=== PATIENT | female | born 1965 | race African-American/Black ===

== ENCOUNTER 2016-09-22 18:19 | Inpatient (IN) | payer OTHER ==
--- NOTE | ~2016-09-22 | HP ---
Unit #: [id number] #: [id number] Patient: DIYA OROPEZA [id number] [facility] [address] [place] [address] [id number] MR#: [id number] NAME: DIYA OROPEZA ROOM: P252 Age: 51 Sex: F Admission Date: 09/23/2016 : 1965 Attending Physician: Pedrito Hernandez M.D. Admitting Physician: Pedrito Hernandez M.D. Primary Care Physician: Primary Care Physician No HISTORY AND PHYSICAL HISTORY OF PRESENT ILLNESS Diya is a 51 year old admitted to [address] [place] [address] because of her polysubstance abuse which includes alcohol and opioids. She reports an alleged suicide attempt with an overdose of pain pills and alcohol. PAST MEDICAL HISTORY 1. High blood pressure. 2. Hyperlipidemia. PAST SURGICAL HISTORY 1. Hysterectomy. 2. Cholecystectomy. 3. T and A. 4. Knee. ALLERGIES No known drug allergies. SOCIAL HISTORY Smokes less than 1 pack per day. Drinks alcohol frequently and denies illicit drug use. FAMILY HISTORY Medically noncontributory. REVIEW OF SYSTEMS CONSTITUTIONAL: No fever or chills. HEENT: Denies any sore throat, ear pain or runny nose. CARDIOVASCULAR: Denies chest pain, irregular heart rhythm or palpitations. CHEST: Denies shortness of breath or cough. No hemoptysis. GASTROINTESTINAL: Denies nausea, vomiting, diarrhea or chronic constipation. ENDOCRINE: Denies history of increased thirst or urination. No recent significant weight loss or gain. GENITOURINARY: Denies dysuria, frequency, or hematuria. SKIN: Denies any rashes. HEMATOLOGIC: Denies history of increased bleeding or bruising. MUSCULOSKELETAL: Denies any hot, swollen joints. No generalized muscle pain. NEUROLOGIC: Denies problems with vision or speech. No frequent, severe headaches. No numbness, tingling or weakness in any extremities. Denies loss of bladder or bowel control. Unit #: [id number] #: [id number] Patient: DIYA OROPEZA CURRENT MEDICATIONS 1. Detox protocol. 2. Norvasc 10 mg daily. 3. Lotensin 20 mg daily. 4. HCTZ 12.5 mg daily. 5. Nicotine patch 14 mg daily. PHYSICAL EXAMINATION GENERAL: Alert, well-nourished, in no apparent distress. VITAL SIGNS: Blood pressure 120/86, heart rate 80, respirations 16, temperature 98.6. SKIN: Warm and dry without rash or lesion. HEENT: Normocephalic. TMs not viewed. Oral and nasal passages clear. Conjunctivae clear. PERRLA. EOMs intact. NECK: Supple without lymphadenopathy or thyromegaly. HEART: Regular rate and rhythm without murmur. LUNGS: Clear. ABDOMEN: Soft, nontender. : Not done. EXTREMITIES: No evidence of cyanosis, clubbing or edema. Moves all without focal deficit. NEUROLOGICAL: Grossly within normal limits. Cranial Nerves: II: Visual rich are intact. III, IV AND : Extraocular movements are intact. Pupils are equal, round and reactive to light. V: Facial sensation is grossly normal. VII: Facial movements and expression are normal. VIII: Auditory acuity grossly intact. IX, X: Uvula is midline. Phonation is normal. XI: Patient shrugs shoulders and turns head normally. XII: Tongue protrudes in the midline. Sensory and Motor Function: Sensory and motor sensation is grossly normal. Motor: moves all extremities well. Coordination: Gait is normal. Deep Tendon Reflexes: Intact. IMPRESSION Psychiatric admission. RECOMMENDATIONS PSYCHIATRIC: Per psychiatrist. MEDICAL: See no contraindications to participate in facility's activities. MEDICAL PROGNOSIS Good. MEDICAL CONDITION Stable. Dictated by... Zhane Pineda P.A.-C. for Shivani Salmon/rukhsana TD: 09/23/2016 20:01 JOB #: [id number] Unit #: [id number] #: [id number] Patient: DIYA OROPEZA HISTORY AND PHYSICAL Page 1 of 1 X Zhane Pineda HISTORY AND PHYSICAL
--- NOTE | ~2016-09-22 | PN ---
Unit #: [id number] #: [id number] Patient: DIYA OROPEZA [id number] [facility] [address] [place] [address] [id number] I MR#: [id number] NAME: DIYA OROPEZA ROOM: P252 Age: 51 Sex: F Admission Date: 09/23/2016 : 1965 Attending Physician: Pedrito Hernandez M.D. Admitting Physician: Pedrito Hernandez M.D. Primary Care Physician: Primary Care Physician Dione REYES PROGRESS NOTES DATE OF SERVICE 09/25/2016 DISCUSSION Ms. Rivera is a 51-year-old female seen on 09/25/2016. The patient interviewed, chart reviewed. Obtained information from nursing staff. The patient continues to report feeling sad, depressed, withdrawn, but denied any thoughts of harming self or others, making progress. The patient dressed casually. Hygiene and grooming fair. Pleasant, cooperative. Complete Review of Systems: Unremarkable. MENTAL STATUS EXAMINATION General Appearance: The patient dressed casually in hospital attire. Attention span, concentration: Fair. Oriented in time, place, and person. Mood and affect: Sad, dysphoric. Speech: Monotone. Thought process: [place]. The patient denied any thoughts of harming self or others. Reported her mood is getting better but still isolative. Recent and remote memory: Poor. Insight and judgment: Poor. DIAGNOSES 1. Major depressive, disorder, recurrent. 2. Alcohol use disorder, moderate. ASSESSMENT/PLAN Advised to continue with current medication and therapeutic protocol. If needed, consider further adjustment of medication. Dictated by... Shivani Guerrero/vilma TD: 09/26/2016 14:49 JOB #: [id number] Unit #: [id number] #: [id number] Patient: DIYA OROPEZA [facility] PROGRESS NOTES Page 1 of 1 X Pedrito Hernandez MD PROGRESS NOTE
--- NOTE | ~2016-09-22 | DS ---
Unit #: [id number] #: [id number] Patient: DIYA OROPEZA [id number] [facility] [address] [place] [address] [id number] MR#: [id number] NAME: DIYA OROPEZA ROOM: [facility] Age: 51 Sex: F Admission Date: 09/23/2016 : 1965 Discharge Date: 09/27/2016 Attending Physician: Pedrito Hernandez M.D. Primary Care Physician: Primary Care Physician No DISCHARGE SUMMARY REASON FOR ADMISSION Depression and alcohol abuse. DIAGNOSTIC STUDIES LABORATORY RESULTS: Unremarkable. HOSPITAL COURSE The patient was admitted to inpatient unit on 09/23/2016 and discharged on 09/27/2016. The patient was treated with group therapy, individual therapy, and medication management. The patient responded well with the above modalities of treatment. Subsequently, the patient was discharged with a plan to follow up in outpatient program. DISCHARGE MEDICATIONS Zoloft 50 mg daily for depression, Vistaril 25 mg t.i.d. for anxiety, and Desyrel 50 mg at bedtime for sleep. DISCHARGE DIAGNOSES Psychiatric: Major depressive disorder, recurrent, severe, F33.2 and alcohol use disorder, severe, F10.20. Secondary diagnosis: Deferred. Medical diagnosis: Hypertension. Stressors: Psychosocial stressors. DISCHARGE INSTRUCTIONS The patient to follow up in outpatient clinic as per electrical line worker. CONDITION ON DISCHARGE The patient was pleasant and cooperative. Denied any psychotic symptom or any suicidal ideation. PROGNOSIS Guarded. DIET AND ACTIVITY As tolerated. Dictated by... Pedrito Hernandez M.D. Unit #: [id number] #: [id number] Patient: DIYA OROPEZA SZC/modl TD: 09/27/2016 17:45 JOB #: [id number] DISCHARGE SUMMARY Page 1 of 1 X Pedrito Hernandez MD X DISCHARGE SUMMARY
--- NOTE | ~2016-09-22 | PA ---
Unit #: [id number] #: [id number] Patient: DIYA OROPEZA [id number] [facility] [address] [place] [address] [id number] MR#: [id number] NAME: DIYA OROPEZA ROOM: P252 Age: 51 Sex: F Admission Date: 09/23/2016 : 1965 Date of Assessment: 09/23/2016 Attending Physician: Pedrito Hernandez M.D. Admitting Physician: Pedrito Hernandez M.D. Primary Care Physician: Primary Care Physician No PSYCHIATRIC ASSESSMENT INFORMANTS The patient's reliability, fair; chart reliability, good. CHIEF COMPLAINT Depression, suicidal ideation, suicide attempt. HISTORY OF PRESENT ILLNESS Ms. Rivera is a 51-year-old female, admitted after she overdosed on pain medication and after drinking alcohol, the patient reported I drank wine and gin and got back to house and took a handful of pain pills. The patient's daughter concerned that the patient has a history of depression. The patient was sad, depressed, feeling of hopelessness. The patient has a history of previous suicide attempt. The patient has also received services in the past, but since she moved to new place, not receiving any services. The patient overdosed with a suicide attempt, brought through the emergency room by EMS on 09/22/2016. The patient has a good support system. Denied any hallucination. Denied any psychotic symptom or any homicidal ideation. The patient reports that she lives at home with son and son's girlfriend. The patient reported lot of recent stressors. The patient binge drink last night. The patient needed inpatient admission at this time for psychiatric stabilization. PAST PSYCHIATRIC HISTORY Remarkable for history of previous treatment. Suicidal ideation inpatient 2006 and 2009 at [facility]. Outpatient services through [facility]. FAMILY HISTORY AND SOCIAL HISTORY The patient has a good support system from family. No history of any abuse. MEDICAL HISTORY Remarkable for hypertension. Musculoskeletal; muscle strength and tone, no atrophy or abnormal movement. Gait normal. MEDICATION HISTORY None. ALLERGIES No known drug allergies. SUBSTANCE ABUSE HISTORY The patient admitted using tobacco, age of onset 40; alcohol, age of onset Unit #: [id number] #: [id number] Patient: DIYA OROPEZA 25, occasional use twice a month. No history of any blackout. No history of any HIV, hepatitis, or withdrawal symptom. REVIEW OF SYSTEMS HEENT: Eyes, clear. Ears, nose, mouth, and throat; clear. CARDIOVASCULAR: Unremarkable. RESPIRATORY: Unremarkable. GI: Unremarkable. : Unremarkable. SKIN: Unremarkable. LYMPH NODE: Unremarkable. NEUROLOGIC: Unremarkable. ENDOCRINE: Unremarkable. HEMATOLOGIC: Unremarkable. ALLERGIC/IMMUNOLOGIC: Unremarkable. MUSCULOSKELETAL: Muscle strength and tone, no atrophy or abnormal movement. Gait normal. MENTAL STATUS EXAMINATION CONSTITUTIONAL: Measurement of vital signs; temperature 98.1, pulse 91, respirations 18, oxygen saturation 100%, and blood pressure 120/87. GENERAL APPEARANCE: The patient dressed casually. The patient did not show any facial deformity. MUSCULOSKELETAL: Please see above. PSYCHIATRIC EXAMINATION Description of speech; regular rate, normal volume, normal articulation, coherent. Description of thought process, goal directed. Description of association, intact. Description of abnormal psychotic thinking; the patient denied any hallucination or delusions, but sad, depressed, suicidal ideation. No psychotic symptom. Description of the patient's judgment; concerning everyday activity, poor. Social situation, poor. Concerning psychiatric condition, poor. Complete mental examination; oriented in time, place, and person. Recent and remote memory, fair. Attention span and concentration, fair. Language, able to name object and repeat phrases. Fund of knowledge, aware of current event and passive vocabulary intact. Mood and affect, sad and depressed. Insight and judgment, fair to poor. ASSETS AND LIABILITIES Assets; the patient is articulate, able to take care of her ADL. Liability; history of depression, alcohol abuse. ADMITTING DIAGNOSES Psychiatric: Major depressive disorder, recurrent, severe, F33.2; alcohol use disorder, moderate, F10.20. Secondary diagnosis: Deferred. Medical diagnosis: Hypertension. Stressors: Psychosocial stressors. PSYCHIATRIC PLAN AND TREATMENT GOAL 1. Advised to admit the patient on the inpatient unit. Provide safe, supportive, and structured environment. 2. Ordered labs; CBC, CMP, UA, and UDS. Unit #: [id number] #: [id number] Patient: DIYA OROPEZA 3. The patient to attend all the programing on the inpatient unit with group therapy, individual therapy, family session. 4. Recommending to start the patient on Zoloft 50 mg at bedtime, Vistaril 25 mg t.i.d. for anxiety, and Desyrel 50 mg at bedtime. The patient to attend all the programing. If needed, consider further adjustment of medication. We will continue to follow. Please feel free to call if any questions telephone #[phone]. Dictated by... Pedrito Hernandez M.D. PAULA/gopal TD: 09/24/2016 01:56 JOB #: [id number] PSYCHIATRIC ASSESSMENT Page 1 of 1 X Pedrito Hernandez MD X PSYCHIATRIC ASSESSMENT
--- NOTE | ~2016-09-22 | PN ---
Unit #: [id number] #: [id number] Patient: DIYA OROPEZA [id number] [facility] [address] [place] [address] [id number] MR#: [id number] NAME: DIYA OROPEZA ROOM: [facility] Age: 51 Sex: F Admission Date: 09/23/2016 : 1965 Attending Physician: Pedrito Hernandez M.D. Admitting Physician: Pedrito Hernandez M.D. Primary Care Physician: Primary Care Physician Dione LOPEZ NOTES DATE OF SERVICE 09/24/2016 DISCUSSION Ms. Rivera is a 51-year-old female. The patient interviewed, chart reviewed. Obtained information from nursing staff. The patient compliant, cooperative. Mood sad, dysphoric, flat affect, guarded. The patient reported medication is helping her, but still sad, depressed, and anxious. The patient was able to participate in programming. Denied any suicidal ideation but flat affect. Reported tremor, anxiety, withdrawal from alcohol. Complete Review of Systems: Unremarkable. MENTAL STATUS EXAMINATION General Appearance: The patient dressed casually. Attention span, concentration: Fair. Oriented in time, place, and person. Mood and affect: Sad, depressed, flat affect, withdrawn, isolative. Speech: Monotone. Denied any thoughts of harming self or others. Recent and remote memory: Poor. Insight and judgment: Poor. DIAGNOSES 1. Major depressive disorder, recurrent. 2. Alcohol use disorder, severe. ASSESSMENT/PLAN Advised to continue with current medication and therapeutic protocol. If needed, consider further adjustment of medication. Dictated by... Shivani Guerrero/vilma TD: 09/25/2016 07:40 JOB #: [id number] Unit #: [id number] #: [id number] Patient: DIYA OROPEZA JOHN NOTES Page 1 of 1 X Pedrito Hernandez MD PROGRESS NOTE
--- NOTE | ~2016-09-22 | PN ---
Unit #: [id number] #: [id number] Patient: DIYA OROPEZA [id number] [facility] [address] [place] [address] [id number] I MR#: [id number] NAME: DIYA OROPEZA ROOM: P252 Age: 51 Sex: F Admission Date: 09/23/2016 : 1965 Attending Physician: Pedrito Hernandez M.D. Admitting Physician: Pedrito Hernandez M.D. Primary Care Physician: Primary Care Physician Dione LOPEZ NOTES DATE 09/26/2016 DISCUSSION Ms. Rivera is a 51-year-old female, seen on 09/26/2016. The patient interviewed, chart reviewed, and obtained information from the nursing staff. The patient continues to report feeling sad, depressed, but able to smile, made good eye contact, no side effects from medications, sleeping good in milieu, able to participate in group. Vital signs, stable, 98.2, 100, 126/89. REVIEW OF SYSTEMS Complete review of systems unremarkable. MENTAL STATUS EXAMINATION General appearance: Patient dressed in hospital attire. Attention span and concentration, fair. Oriented to place and person. Mood and affect, sad and dysphoric but able to smile. Speech, regular rate. Thought process, goal-directed. The patient reported passive SI but denied any active SI, denied any plans, denied any psychotic symptoms. Recent and remote memory, [id number]. Insight and judgment, poor. DIAGNOSES 1. Major depressive disorder, recurrent. 2. Alcohol use disorder, severe. ASSESSMENT/PLAN Advised to continue with the current medication and therapeutic protocol, and if needed consider further adjustment of medication. Dictated by... Shivani Guerrero/viktor TD: 09/28/2016 13:09 JOB #: [id number] Unit #: [id number] #: [id number] Patient: DIYA OROPEZALIZBETH LOPEZ NOTES Page 1 of 1 X Pedrito Hernandez MD PROGRESS NOTE
[2016-09-23 09:35] LABS: BASOPHIL% 0.5 % (0-2.5); EOSINOPHIL# 0.3 X10e3 (0-0.7); EOSINOPHIL% 3.8 % (0.0-7.0); HEMATOCRIT 38.6 % (35.0-45.0); HEMOGLOBIN 12.5 gm/dL (12.0-16.0); LYMPHOCYTE# 2.6 X10e3 (1.0-3.5); LYMPHOCYTE% 39.7 % (17.0-45.0); MEAN CELL VOLUME 90.4 FL (83-96); MEAN CORPUSCULAR HEMOGLOBIN 29.3 PG (28-34); MEAN CORPUSCULAR HGB CONC 32.4 g/dL (30-36); MEAN PLATELET VOLUME 7.5 FL (6.5-11.5); MONOCYTE# 0.5 X10e3 (0-1.0); MONOCYTE% 6.9 % (3.0-12.0); NEUTROPHIL# 3.3 X10e3 (1.5-7.1); NEUTROPHIL% 49.1 % (40-75); PLATELET COUNT 298 X10e3 (140-420); RED BLOOD COUNT 4.27 X10e (3.90-5.30); RED CELL DISTRIBUTION WIDTH 14.6 % (11.0-15.5); WHITE BLOOD COUNT 6.6 X10e3 (4.0-10.5)
[2016-09-23 09:41] LABS: URINE APPEARANCE CLEAR; URINE BILIRUBIN NEG (NEG); URINE BLOOD 1+ (NEG); URINE COLOR YELLOW; URINE GLUCOSE NEG (NEG); URINE KETONE NEG (NEG); URINE LEUKOCYTE ESTERASE NEG (NEG); URINE NITRATE NEG (NEG); URINE PROTEIN NEG (NEG); URINE SPECIFIC GRAVITY 1.019 (1.003-1.035); URINE UROBILINOGEN 0.2 MG/DL (NEG)
[2016-09-23 09:45] LABS: DIFF IND NO
[2016-09-23 09:45] LABS: URINE BACTERIA AUWI 1+ (NEGATIVE); URINE SQUAMOUS EPITHELIAL CELL FEW /[HPF]
[2016-09-23 09:46] LABS: ALBUMIN SERUM 3.8 g/dL (3.5-5.0); BILIRUBIN,TOTAL 1.1 mg/dL (0.2-2.0); BUN/CREATININE RATIO 15.55; CALCIUM SERUM 9.3 mg/dL (8.4-10.2); CREATININE SERUM 0.9 mg/dL (0.6-1.4); GLOM FILT RATE Estimated 85.9 mL/min (>60); POTASSIUM 3.8 mmol/L (3.5-5.1); PROTEIN TOTAL SERUM 6.3 g/dL (6.0-8.3)
[2016-09-23 10:04] LABS: AMPHETAMINE NEG (NEG); BARBITURATES NEG (NEG); BENZODIAZEPINES NEG (NEG); COCAINE NEG (NEG); MARIJUANA NEG (NEG); OPIATES NEG (NEG); TRICYCLIC ANTIDEPRESSANTS NEG (NEG); U METHADONE NEG (NEG)
== END 2016-09-27 11:10 | disposition home or self-care (01) | DRG 885 ==
LOC: P2L 09-23 00:07
PROVIDERS: Psychiatry & Neurology Psychiatry
PROC: HZ2ZZZZ Detoxification Services for Substance Abuse Treatment (ICD-10-PCS; principal; 2016-09-23)
DX: F33.2 Major depressive disorder, recurrent severe without psychotic features (principal); I10 Essential (primary) hypertension; F10.20 Alcohol dependence, uncomplicated; E78.5 Hyperlipidemia, unspecified; Z90.710 Acquired absence of both cervix and uterus; Z90.49 Acquired absence of other specified parts of digestive tract; F17.210 Nicotine dependence, cigarettes, uncomplicated
CPT/HCPCS: 80053; 80307; 81003; 85025; 86592